=== PATIENT | female | born 1930 | race Caucasian/White ===

== ENCOUNTER 2016-07-02 18:08 | Emergency (ER) | payer MEDICARE, BC ==
[2015-03-01 11:53] VITALS: BMI 19.2
[~2016-07-02 18:08] MED LIST: ADVAIR 250/501 DISK INH; BAYER CHEWABLE81 MG PO; CELEXA20 MG PO; MINERAL OIL25 ML PO; MIRALAX17 GM PO; PLAVIX75 MG PO; PREDNISONE5 MG PO; PREVACID30 MG PO; PROAIR HFA8.5 GM INH; PROTONIX40 MG PO; PROVENTIL/2.5 MG/3 M INH; SINGULAIR10 MG PO; SPIRIVA18 MCG INH
[2016-07-02 19:36] LABS: BASOPHILS 0.4 % (0.0-2.0); EOSINOPHILS 0.8 % (0-7); HEMATOCRIT 33.2 % (36.0-48.0); HEMOGLOBIN 9.8 g/dL (12-16); LYMPHOCYTES 14.4 % (15-50); MCH 27.3 pg (26.0-34.0); MCHC 29.5 g/dL (31.0-37.0); MCV 92.5 fL (80.0-100.0); MEAN PLATELET VOLUME 9.5 fL (7.4-10.4); MONOCYTES 7.4 % (2-11); PLATELET COUNT 231 10x3/uL (130-400); RBC 3.59 10x6/uL (4.00-5.40); RDW 14.2 % (11.5-14.5); WBC 5.1 10x3/uL (4.8-10.8)
[2016-07-02 19:54] LABS: APTT 30.1 SECONDS (22.8-39.4); INR 0.92 (0.85-1.17); PROTIME 12.2 SECONDS (11.6-15.0)
== END 2016-07-02 20:19 | disposition home or self-care (01) ==
LOC: D.ER 18:08
PROVIDERS: Physician Assistant Medical
DX: S81.811A Laceration without foreign body, right lower leg, initial encounter (principal); X58.XXXA Exposure to other specified factors, initial encounter; Y93.E1 Activity, personal bathing and showering; Y92.012 Bathroom of single-family (private) house as the place of occurrence of the external cause; J44.9 Chronic obstructive pulmonary disease, unspecified; J45.909 Unspecified asthma, uncomplicated; H35.30 Unspecified macular degeneration; F17.200 Nicotine dependence, unspecified, uncomplicated

== ENCOUNTER 2016-09-29 18:36 | Emergency (ER) | payer MEDICARE, BC ==
[2015-03-01 11:53] VITALS: BMI 19.2
== END 2016-09-29 20:00 | disposition home or self-care (01) ==
LOC: D.ER 18:36
DX: S41.111A Laceration without foreign body of right upper arm, initial encounter (principal); W26.9XXA Contact with unspecified sharp object(s), initial encounter; Y93.89 Activity, other specified; Y92.89 Other specified places as the place of occurrence of the external cause; J45.909 Unspecified asthma, uncomplicated; J44.9 Chronic obstructive pulmonary disease, unspecified; H35.30 Unspecified macular degeneration

== ENCOUNTER 2018-07-11 16:21 | Inpatient (IN) | payer MEDICARE, BC ==
[~2018-07-11] VITALS: Ht 157.5 cm; Wt 45.8 kg
[2018-07-11] MEDS ORDERED: SYNTHROID25 MCG PO (18:04)
[2018-07-11] MEDS ORDERED: PLAVIX75 MG PO (18:08)
[2018-07-11 18:23] VITALS: BP 184/85; BMI 18.5
[2018-07-11 19:14] LABS: BASOPHILS 0.4 % (0-2); EOSINOPHILS 2.4 % (0-7); HEMATOCRIT 34.3 % (36.0-48.0); HEMOGLOBIN 10.9 g/dL (12-16); LYMPHOCYTES 13.8 % (15-50); MCH 29.4 pg (26.0-34.0); MCHC 31.8 g/dL (31.0-37.0); MCV 92.5 fL (80.0-100.0); MEAN PLATELET VOLUME 8.9 fL (7.4-10.4); MONOCYTES 12.8 % (2-11); NEUTROPHILS 70.6 % (40-80); PLATELET COUNT 304 10x3/uL (130-400); RBC 3.71 10x6/uL (4.00-5.40); RDW 12.8 % (11.5-14.5); WBC 5.4 10x3/uL (4.8-10.8)
--- NOTE | 2018-07-11 19:57 | NUR ---
PATIENT RESTING IN BED WITH EYES OPEN. WATCHING TV. COMPLAINS OF NOT WANTING TO BE IN THE HOSPITAL. NO SIGNS OF DISTRESS. DENIES HAVING ANY PAIN OR NEEDS AT THIS TIME. BED IN LOWEST POSITION. SIDE RAILS UP. CALL LIGHT IN REACH. CONTINUE PLAN OF CARE.
[2018-07-11 20:00] VITALS: BP 155/67
[2018-07-11 20:25] LABS: ANION GAP 9.8 mmol/L (8-16); BILIRUBIN - TOTAL 0.35 mg/dL (0.2-1.3); CALCIUM 8.7 mg/dL (8.5-10.1); CARBON DIOXIDE 38.1 mmol/L (21.0-32.0); POTASSIUM - SERUM 3.9 mmol/L (3.5-5.1); PROTEIN - SERUM 7.6 g/dL (6.4-8.2)
[2018-07-12] VITALS (7 sets, daily range): BP systolic 133–184; BP diastolic 57–81; BMI 18.4
--- NOTE | 2018-07-12 04:00 | NUR ---
PATIENT RESTING IN BED WITH EYES CLOSED. NO SIGNS OF DISTRESS. BED IN LOWEST POSITION. SIDE RAILS UP. CALL LIGHT IN REACH. CONTINUE PLAN OF CARE.
[2018-07-12 07:35] LABS: HEMATOCRIT 33.7 % (36.0-48.0); HEMOGLOBIN 10.7 g/dL (12-16); MCH 29.5 pg (26.0-34.0); MCHC 31.8 g/dL (31.0-37.0); MCV 92.8 fL (80.0-100.0); MEAN PLATELET VOLUME 9.3 fL (7.4-10.4); PLATELET COUNT 337 10x3/uL (130-400); RBC 3.63 10x6/uL (4.00-5.40); RDW 12.8 % (11.5-14.5)
[2018-07-12 07:54] LABS: ALBUMIN 2.7 g/dL (3.4-5.0); ANION GAP 9.4 mmol/L (8-16); BILIRUBIN - TOTAL 0.19 mg/dL (0.2-1.3); CALCIUM 8.5 mg/dL (8.5-10.1); CARBON DIOXIDE 37.7 mmol/L (21.0-32.0); CREATININE - SERUM 0.9 mg/dL (0.6-1.3); POTASSIUM - SERUM 4.1 mmol/L (3.5-5.1); PROTEIN - SERUM 6.9 g/dL (6.4-8.2)
[2018-07-12 08:04] LABS: WBC 2.8 10x3/uL (4.8-10.8)
[2018-07-12 09:03] LABS: BASOPHILS 1 % (0-2); LYMPHOCYTES 15 % (15-50); MONOCYTES 3 % (2-11); NEUTROPHILS 80 % (40-80); PLATELET ESTIMATE NORMAL
--- NOTE | 2018-07-12 09:41 | NUR ---
PT RESTING IN BED, WATCHING TV. PT HAS GLASSES AND DENTURES. PT ALERT AND ORIENTED. UP WITH ASSIST. IV TO LEFT AC, SL. SITE PATENT WITHOUT REDNESS OR SWELLING. NO C/O PAIN. NO S/S OF ACUTE DISTRESS NOTED. PT DENIES ANYTHING FURTHER AT THIS TIME. CALL LIGHT IN REACH. WILL CONTINUE TO MONITOR.
--- NOTE | 2018-07-12 18:25 | NUR ---
PT RESTING IN BED, EYES OPEN. NO C/O PAIN. NO S/S OF ACUTE DISTRESS NOTED. CALL LIGHT IN REACH. PT DENIES ANYTHING FURTHER AT THIS TIME. WILL CONTINUE TO MONITOR.
--- NOTE | 2018-07-12 19:35 | NUR ---
ALERT AND ORIENTED X4. LYING IN BED. TALKATIVE WITH STAFF. SLIGHTLY [place]ANDREAU. RESP IRREG, SLIGHTLY LABORED. BBS CTA BUT DIMINISHED IN BLL. O2 @ 3L/NC. NONPROD COUGH NOTED. SKIN IS THIN, FRAGILE. BRUISE NOTED TO LT OUTER LEG. BLE ARE DISCOLORED BROWN. NO EDEMA NOTED. DENIES PAIN. SALINE LOCK NOTED TO LT AC. NO DISTRESS. CL IN REACH.
[2018-07-13 03:58] VITALS: BP 138/56; BP 166/64
[2018-07-13 04:00] VITALS: BP 138/56
[2018-07-13 05:50] LABS: BASOPHILS 0 % (0-2); EOSINOPHILS 0 % (0-7); HEMATOCRIT 31.9 % (36.0-48.0); HEMOGLOBIN 10.1 g/dL (12-16); LYMPHOCYTES 16.1 % (15-50); MCHC 31.7 g/dL (31.0-37.0); MCV 91.7 fL (80.0-100.0); MEAN PLATELET VOLUME 9.3 fL (7.4-10.4); MONOCYTES 5.7 % (2-11); NEUTROPHILS 78.2 % (40-80); PLATELET COUNT 330 10x3/uL (130-400); RBC 3.48 10x6/uL (4.00-5.40); RDW 12.5 % (11.5-14.5)
[2018-07-13 06:06] LABS: WBC 3.7 10x3/uL (4.8-10.8)
[2018-07-13 06:10] LABS: ALBUMIN 2.6 g/dL (3.4-5.0); ANION GAP 8.1 mmol/L (8-16); BILIRUBIN - TOTAL 0.16 mg/dL (0.2-1.3); CALCIUM 8.2 mg/dL (8.5-10.1); CARBON DIOXIDE 36.9 mmol/L (21.0-32.0); CREATININE - SERUM 1.2 mg/dL (0.6-1.3); MAGNESIUM - SERUM 1.9 mg/dL (1.8-2.4); PHOSPHOROUS 3.6 mg/dL (2.5-4.9); PROTEIN - SERUM 6.4 g/dL (6.4-8.2)
--- NOTE | 2018-07-13 08:00 | NUR ---
ASSESSMENT COMPLETE. SL TO L AC. O2 3L NC IN USE. DENIES ANY NEEDS AT THIS TIME.
[2018-07-13 09:18] LABS: IMMUNOGLOBULIN A 121 mg/dL (64-422); IMMUNOGLOBULIN G 803 mg/dL (700-1600)
[2018-07-13 10:36] VITALS: BP 153/57
[2018-07-13 12:00] VITALS: BP 140/80
--- NOTE | 2018-07-13 12:51 | MORECARE ---
CASE MANAGEMENT DISCHARGE SUMMARY PATIENT: MARIANA DIAZ UNIT: [id number] ADM DATE: 07/11/18 AGE: 87 : 30 SEX: F ROOM/BED: D.1213 AUTHOR: KAITLIN ENNIS PHYSICIAN: REFERRING PHYSICIAN: OTILIA BAPTISTE MD DATE OF SERVICE: 07/13/18 Discharge Plan Patient Name: MARIANA DIAZ Facility: [facility]:[place] : 1930 Planned Disposition: Anticipated Discharge Date: Discharge Date: Expected LOS: Initial Reviewer: [email or web address] Initial Review Date: 07/13/2018 Generated: 07/13/18 1:51 pm Coverage Notice Reviewer: [id number] - Natalie Aggarwal Notice Issued Date-Time: 07/13/2018 12:45 Notice Type: Patient Choice Letter Notice Delivered To: Patient Relationship to Patient: Self Instructor [employer] Name: Delivery Method: HAND - Hand Delivered Yasmine Days: Prior Verbal Notification: Recipient Understood Notice: Yes Recipient Signature: Yes Med Rec Note Co-signed by Attending: Coverage Notice Comment: BERTA MINA Patient Name: MARIANA DIAZ Page [phone] at 1251 All edits/amendments must be made on the electronic document DICTATION DATE: 07/13/18 1251 GANG DRILL OPERATOR: VERITO 07/13/18 1251 RPT#: [id number] DC DATE: STATUS: ADM IN [facility] [address] [place] [address] END OF REPORT
--- NOTE | 2018-07-13 12:58 | MORECARE ---
CASE MANAGEMENT DISCHARGE SUMMARY PATIENT: MARIANA DIAZ UNIT: [id number] ADM DATE: 07/11/18 AGE: 87 : 30 SEX: F ROOM/BED: D.1213 AUTHOR: KAITLIN ENNIS PHYSICIAN: REFERRING PHYSICIAN: OTILIA BAPTISTE MD DATE OF SERVICE: 07/13/18 Discharge Plan Patient Name: MARIANA DIAZ Facility: [facility]:[place] : 1930 Planned Disposition: Anticipated Discharge Date: Discharge Date: Expected LOS: Initial Reviewer: [email or web address] Initial Review Date: 07/13/2018 Generated: 07/13/18 1:57 pm DCPIA - Discharge Planning Initial Assessment Updated by [email or web address]: Natalie Aggarwal on 07/13/18 12:55 pm * Is the patient Alert and Oriented? Yes * PCP OLIVA * Pharmacy [facility] * Preadmission Environment Home Alone * ADLs Independent * Equipment Cane Nebulizer Oxygen Walker Wheelchair * List name and contact numbers for known caregivers / representatives who currently or will assist patient after discharge: DENISE REEVES, [phone] * Community resources currently utilized None * Please name any agencies selected above. [facility] PATIENT * Additional services required to return to the preadmission environment? Yes * Can the patient safely return to the preadmission environment? Yes * Has this patient been hospitalized within the prior 30 days at any hospital? No Coverage Notice Reviewer: [id number] - Natalie gAgarwal Notice Issued Date-Time: 07/13/2018 12:45 Notice Type: Patient Choice Letter Notice Delivered To: Patient Relationship to Patient: Self Manager Bridge Name: Delivery Method: HAND - Hand Delivered Yasmine Days: Prior Verbal Notification: Recipient Understood Notice: Yes Recipient Signature: Yes Med Rec Note Co-signed by Attending: Coverage Notice Comment: BERTA ROBLES Last DP export: 07/13/18 11:51 a Patient Name: MARIANA DIAZ Page [phone] at 1258 All edits/amendments must be made on the electronic document DICTATION DATE: 07/13/18 1257 MACHINE TRIMMER: VERITO 07/13/18 1257 RPT#: [id number] DC DATE: STATUS: ADM IN [facility] [address] [place] [address] END OF REPORT
--- NOTE | 2018-07-13 13:06 | MORECARE ---
CASE MANAGEMENT DISCHARGE SUMMARY PATIENT: MARIANA DIAZ UNIT: [id number] ADM DATE: 07/11/18 AGE: 87 : 30 SEX: F ROOM/BED: D.1213 AUTHOR: LOLI,DOC PHYSICIAN: REFERRING PHYSICIAN: OTILIA BAPTISTE MD DATE OF SERVICE: 07/13/18 Discharge Plan Patient Name: MARIANA DIAZ Facility: [facility]:[place] : 1930 Planned Disposition: Anticipated Discharge Date: Discharge Date: Expected LOS: Initial Reviewer: [email or web address] Initial Review Date: 07/13/2018 Generated: 07/13/18 2:06 pm Comments DCP- Discharge Planning Updated by [email or web address]: Natalie Aggarwal on 07/13/18 12:[address] Patient Name: MARIANA DIAZ Admission Status: Urgent Accout number: [id number] Admission Date: 07-11-2018 : 1930 Admission Diagnosis: Attending: OTILIA BAPTISTE Current LOS: 2 Anticipated DC Date: Planned Disposition: Primary Insurance: MEDICARE A & B Discharge Planning Comments: CM MET WITH PATIENT AND HER DAUGHTER LALA ABOUT DC PLANNING/NEEDS. STATES PLANS TO DC TO HOME WITH HOME HEALTH. PC FORM SIGNED FOR [facility]. PATIENT STATES NEEDS SOME HELP AT HOME AND PT AND A NURSE TO CHECK ON HER. DR. BAPTISTE AT BEDSIDE AND ASSURED PATIENT WE WOULD SET HH UP FOR HER AT TIME OF DISCHARGE. PATIENT DAUGHTER LALA WOULD LIKE TO BE PRESENT WHEN DECISIONS ARE MADE. CM TO FOLLOW AND ASSIST NEEDED WITH DC PLANNING/NEEDS. Senior Manufacturing Technician: Natalie Aggarwal DCPIA - Discharge Planning Initial Assessment Updated by [email or web address]: Natlaie Aggarwal on 07/13/18 12:55 pm * Is the patient Alert and Oriented? Yes * PCP OLIVA * Pharmacy [facility] * Preadmission Environment Home Alone * ADLs Independent * Equipment Cane Nebulizer Oxygen Walker Wheelchair * List name and contact numbers for known caregivers / representatives who currently or will assist patient after discharge: DENISE REEVES, [phone] * Community resources currently utilized None * Please name any agencies selected above. [facility] PATIENT * Additional services required to return to the preadmission environment? Yes * Can the patient safely return to the preadmission environment? Yes * Has this patient been hospitalized within the prior 30 days at any hospital? No Coverage Notice Reviewer: [id number] Marj Aggarwal Notice Issued Date-Time: 07/13/2018 12:45 Notice Type: Patient Choice Letter Notice Delivered To: Patient Relationship to Patient: Self Steward/Stewardess Chief Cargo Vessel Name: Delivery Method: HAND - Hand Delivered Yasmine Days: Prior Verbal Notification: Recipient Understood Notice: Yes Recipient Signature: Yes Med Rec Note Co-signed by Attending: Coverage Notice Comment: BERTA ROBLES Last DP export: 07/13/18 11:58 a Patient Name: MARIANA DIAZ Page [phone] at 1306 All edits/amendments must be made on the electronic document DICTATION DATE: 07/13/18 1305 DISH MAKER: VERITO 07/13/18 1305 RPT#: [id number] DC DATE: STATUS: ADM IN [facility] [address] [place] [address] END OF REPORT
--- NOTE | 2018-07-13 14:20 | NUR ---
PATIENT BATHED AND LINENS CHANGED. SOB WITH EXERTION. CALL LIGHT WITHIN REACH. DENIES ANY NEEDS AT THIS TIME.
--- NOTE | 2018-07-13 15:33 | NUR ---
RESTING QUIETLY IN BED. DENIES ANY NEEDS AT THIS TIME. FAMILY AT BEDSIDE.
--- NOTE | 2018-07-13 18:00 | NUR ---
DENIES ANY NEEDS AT THIS TIME.
--- NOTE | 2018-07-13 19:20 | NUR ---
SITTING UP ON SIDE OF BED. ALERT AND ORIENTED X4. TALKATIVE WITH STAFF. RESP IRREG, SLIGHTLY LABORED. BBS CTA BUT DIMINISHED IN BLL. PROD COUGH WITH YELLOW SPUTUM. BRUISES NOTED TO BUE. BLE ARE DISCOLORED BROWN. NO EDEMA NOTED. AMBULATORY. GEN WEAKNESS NOTED. DENIES PAIN. O2 @ 2L/NC. SALINE LOCK NOTED TO LT AC. BRUISE NOTED TO LT OUTER KNEE. CL IN REACH.
[2018-07-13 21:18] VITALS: BP 152/61
[2018-07-14 00:50] VITALS: BP 117/76
[2018-07-14 05:35] VITALS: BP 143/63
[2018-07-14 07:17] LABS: BASOPHILS 0.2 % (0-2); EOSINOPHILS 0 % (0-7); HEMATOCRIT 32.5 % (36.0-48.0); HEMOGLOBIN 10.3 g/dL (12-16); IMMATURE GRANULOCYTES 0.2 % (0-5); LYMPHOCYTES 12.6 % (15-50); MCH 29.1 pg (26.0-34.0); MCHC 31.7 g/dL (31.0-37.0); MCV 91.8 fL (80.0-100.0); MEAN PLATELET VOLUME 9.1 fL (7.4-10.4); MONOCYTES 8.1 % (2-11); NEUTROPHILS 78.9 % (40-80); PLATELET COUNT 347 10x3/uL (130-400); RBC 3.54 10x6/uL (4.00-5.40); RDW 12.6 % (11.5-14.5)
[2018-07-14 07:18] LABS: WBC 5.5 10x3/uL (4.8-10.8)
[2018-07-14 07:35] LABS: ALBUMIN 2.6 g/dL (3.4-5.0); ANION GAP 5.4 mmol/L (8-16); BILIRUBIN - TOTAL 0.15 mg/dL (0.2-1.3); CALCIUM 8.2 mg/dL (8.5-10.1); CARBON DIOXIDE 39.3 mmol/L (21.0-32.0); CREATININE - SERUM 1.2 mg/dL (0.6-1.3); POTASSIUM - SERUM 3.7 mmol/L (3.5-5.1); PROTEIN - SERUM 6.5 g/dL (6.4-8.2)
--- NOTE | 2018-07-14 08:00 | NUR ---
ASSESSMENT COMPLETE. SL TO L AC. O2 2L NC IN USE. NONPRODUCTIVE COUGH. DENIES ANY NEEDS AT THIS TIME.
--- NOTE | 2018-07-14 10:41 | NUR ---
AMBULATED IN HALLWAY WITH PHYSICAL THERAPY.
[2018-07-14 11:22] LABS: ANA REFLEX - DIRECT Negative (Negative)
[2018-07-14 11:39] VITALS: BP 135/59
--- NOTE | 2018-07-14 12:22 | NUR ---
SITTING UP IN CHAIR. CALL LIGHT WITHIN REACH. DENIES ANY NEEDS AT THIS TIME.
[2018-07-14] MEDS ORDERED: LEVAQUIN750 MG PO (13:26)
[2018-07-14] MEDS ORDERED: MEDROL DOSE PACK4 MG PO (13:27)
--- NOTE | 2018-07-14 13:27 | NUR ---
Nutrition Follow Up: Pt stated that her appetite was fair. She said that she has not drank any Ensure but will try to. Pt said that her mouth was sore r/t thrush. Food preferences noted. RD encouraged pt to increase po intake as able and to try to consume at least 1 Ensure/day. Diet: Regular; Ensure TID PO Intake: 58% meal avg No BM since admit Labs reviewed Meds noted including Megace, Solu Medrol Rec continue current diet, supplement regimen. Will honor food preferences. RD following.
--- NOTE | 2018-07-14 14:59 | NUR ---
Rehab Prescreening Consult recieved and the patient was visited. She meets criteria for the ARU and is agreeable to participate in the required therapy. She will be accepted today if the physician agrees. Discussed with the patient's nurse Sonya. Keyla Merida RN Clinical Liaison, Rehab
--- NOTE | 2018-07-14 16:20 | NUR ---
REPORT CALLED TO REHAB. PATIENT DC'D TO REHAB ROOM 1112B VIA WC WITH BELONGINGS.
[2018-07-14 23:54] VITALS: Ht 157.5 cm; Wt 45.8 kg
[2018-07-17 17:11] LABS: IMMUNOGLOBULIN E 15 IU/mL (6-495)
== END 2018-07-14 16:20 | DRG 189 ==
LOC: D.SDCHOLD 16:21 → D.M3 16:21
PROVIDERS: Internal Medicine Pulmonary Disease; ADMIT Family Medicine; ATTEND Family Medicine
DX: J96.22 Acute and chronic respiratory failure with hypercapnia (principal); E46 Unspecified protein-calorie malnutrition; J47.0 Bronchiectasis with acute lower respiratory infection; Z68.1 Body mass index [BMI] 19.9 or less, adult; J96.21 Acute and chronic respiratory failure with hypoxia; J43.9 Emphysema, unspecified; J01.90 Acute sinusitis, unspecified; I10 Essential (primary) hypertension; I25.10 Atherosclerotic heart disease of native coronary artery without angina pectoris; I73.9 Peripheral vascular disease, unspecified; K21.9 Gastro-esophageal reflux disease without esophagitis; Z87.891 Personal history of nicotine dependence; D64.9 Anemia, unspecified; E03.9 Hypothyroidism, unspecified; J20.9 Acute bronchitis, unspecified

== ENCOUNTER 2018-07-14 16:26 | Inpatient (IN) | payer MEDICARE, BC ==
[~2018-07-14] VITALS: Ht 157.5 cm; Wt 45.8 kg
[~2018-07-14 16:26] MED LIST changes: +LEVAQUIN750 MG PO; +MEDROL DOSE PACK4 MG PO; +SYNTHROID25 MCG PO
[2018-07-14 17:54] VITALS: BMI 18.5
[2018-07-14 19:30] VITALS: BP 183/72
[2018-07-15 08:00] VITALS: BP 120/41
[2018-07-15 18:46] VITALS: Ht 157.5 cm; Wt 45.8 kg
[2018-07-15 19:30] VITALS: BP 137/54
[2018-07-16 08:12] VITALS: BP 148/44
[2018-07-16 19:28] VITALS: BP 132/47
[2018-07-17 08:16] VITALS: BP 142/55
[2018-07-17 19:50] VITALS: BP 179/72
[2018-07-18 06:28] LABS: BASOPHILS 0 % (0-2); EOSINOPHILS 0.9 % (0-7); HEMATOCRIT 33.8 % (36.0-48.0); HEMOGLOBIN 10.5 g/dL (12-16); IMMATURE GRANULOCYTES 0.3 % (0-5); LYMPHOCYTES 20.5 % (15-50); MCH 28.9 pg (26.0-34.0); MCHC 31.1 g/dL (31.0-37.0); MCV 93.1 fL (80.0-100.0); MEAN PLATELET VOLUME 9.2 fL (7.4-10.4); MONOCYTES 12.7 % (2-11); NEUTROPHILS 65.6 % (40-80); PLATELET COUNT 352 10x3/uL (130-400); RBC 3.63 10x6/uL (4.00-5.40); RDW 13.2 % (11.5-14.5); WBC 6.6 10x3/uL (4.8-10.8)
[2018-07-18 06:59] LABS: ANION GAP 5.7 mmol/L (8-16); CALCIUM 8.5 mg/dL (8.5-10.1); CARBON DIOXIDE 38.1 mmol/L (21.0-32.0); CREATININE - SERUM 1.1 mg/dL (0.6-1.3); POTASSIUM - SERUM 3.8 mmol/L (3.5-5.1)
[2018-07-18 08:16] VITALS: BP 144/37
[2018-07-18 19:00] VITALS: BP 137/48
[2018-07-19 08:16] VITALS: BP 172/49
[2018-07-19 19:00] VITALS: BP 139/59
[2018-07-20 07:58] VITALS: BP 138/46
[2018-07-20 19:00] VITALS: BP 117/51
[2018-07-21 08:00] VITALS: BP 147/42
[2018-07-21 19:00] VITALS: BP 139/51
[2018-07-22 07:30] VITALS: BP 162/67
[2018-07-23 08:00] VITALS: BP 156/60
[2018-07-23 20:08] VITALS: BP 158/65
[2018-07-24 07:36] LABS: BASOPHILS 0.3 % (0-2); HEMATOCRIT 31.9 % (36.0-48.0); HEMOGLOBIN 9.9 g/dL (12-16); IMMATURE GRANULOCYTES 0.1 % (0-5); LYMPHOCYTES 14.6 % (15-50); MCH 28.6 pg (26.0-34.0); MCV 92.2 fL (80.0-100.0); MEAN PLATELET VOLUME 8.8 fL (7.4-10.4); MONOCYTES 14.6 % (2-11); NEUTROPHILS 67.4 % (40-80); RBC 3.46 10x6/uL (4.00-5.40); RDW 13.8 % (11.5-14.5)
[2018-07-24 07:44] LABS: CALCIUM 8.2 mg/dL (8.5-10.1); CARBON DIOXIDE 34.8 mmol/L (21.0-32.0); POTASSIUM - SERUM 3.8 mmol/L (3.5-5.1)
[2018-07-24 07:55] LABS: PLATELET COUNT 279 10x3/uL (130-400)
[2018-07-24 08:17] VITALS: BP 150/57
--- NOTE | 2018-07-24 10:06 | RHP ---
PATIENT: MARIANA DIAZ MEDICAL RECORD: [id number] ACCOUNT: [id number] LOCATION:[id number] : 30 ADMISSION DATE: 07/14/18 REHABILITATION HISTORY AND PHYSICAL EXAMINATION POST ADMISSION PHYSICIAN EXAMINATION DATE OF ADMISSION: 07/14/2018 ADMITTING DIAGNOSES: Chronic obstructive pulmonary disease myopathy. HISTORY OF PRESENT ILLNESS: The patient is an elderly female patient of Dr. Hagan who presents secondary to chronic obstructive pulmonary disease myopathy. She was admitted to hospital from clinic on 07/11/2018 with a 1-week history of not feeling well, increasing shortness of breath, leg edema, productive cough, dyspnea with minimal activity and unable to do activities of daily living. She was using nebulizer, which helped and steroids chronically over many years, but had just decompensated over the previous couple of weeks. The patient had a CT of her chest, which showed qnnsnvct-px-qthdrx central lobar emphysematous changes and peribronchial thickening diffusely. Bronchiectasis was also present in lower lobes bilaterally. She was quite weak, fatigued, had prolonged capillary refill an irregular heart rhythm and decreased breath sounds bilaterally with wheezes. Pulmonary saw her during her stay and diagnosed her with severe COPD, O2 and steroid dependence. Recommended treatment was neb treatments, albuterol, ipratropium bromide, Brovana, budesonide, IV steroids, Daliresp, and titrating O2 sats greater than 90%. She was placed on IV antibiotics. She has also been on DVT and GI prophylaxis. The patient improved with corticosteroids and IV Lasix, this was stopped on 07/12/2018. The steroids had been tapered over this time. She has had prolonged immobility, progressive generalized weakness, especially on her lower extremities affecting her tolerance to PT. She has been very fatigued, limited flexion and extension of her lower extremities. Proximal muscle strength has been decreased. She needed mod-to-max assist for ADLs, mod-to-max assist for jap-aa-vkdum and fpv-vu-pmgdg. She is highly motivated and has good family support to regain her strength. She wears O2 at 2 liters continuously. BARRIERS TO DISCHARGE: She lives alone. She is currently on continuous O2 at 4 liters. She needs to be titrated back down to her previous level of 2 liters. She is on IV steroids, being titrated back to p.o. dose. She ambulated 100 feet with 4 liters using a rolling walker, gait belt and PT assistance due to dyspnea on exertion. She is fatigued, has generalized weakness, which increases her risk for falls. She definitely benefits from inpatient rehabilitation. COMORBIDITIES: Include COPD, emphysema, pulmonary edema, oigea-rl-vpayjmu hypoxic respiratory failure, hypertension, coronary artery disease, gastroesophageal reflux disease, xneqc-qr-fxstxud sinusitis, anemia, hypothyroidism and debility. PAST MEDICAL HISTORY: Significant for seizures, tremors, eye problems, hypertension, peripheral vascular disease, COPD, asthma, pneumonia, home O2 dependence, hypothyroidism, tobacco use, coronary artery disease and peripheral arterial disease. PAST SURGICAL HISTORY: Includes cataracts, fem-pop stent placed in the left side, angioplasty with stents in the past. HISTORY AND PHYSICAL [id number] MARIANA DIAZ ALLERGIES: SULFA, AMOXIL, BUMEX, CODEINE AND MACROBID. CURRENT MEDICATIONS: Include Megace 400 mg daily. She is on Solu-Medrol injection 40 mg b.i.d., clonidine 0.1 mg every 6 hours p.r.n., is on a low-resistant sliding scale. She is on a glucose replacement protocol as needed, aspirin 81 mg daily, Tessalon Perles 100 mg t.i.d., Celexa 20 mg daily, Plavix 75 mg daily, Lovenox 40 mg daily, Flonase nasal spray 2 sprays daily. She is on Brovana 15 mcg b.i.d., budesonide 0.5 mg b.i.d., Synthroid 25 mcg daily, Protonix 40 mg daily, Levaquin 750 mg every 24 hours, she is on Singulair 10 mg at bedtime and DuoNeb updrafts p.r.n. HABITS: No alcohol or tobacco use. FAMILY HISTORY: Noncontributory. SOCIAL HISTORY: The patient hopes to return back home and get back to her prior level of functioning. REVIEW OF SYSTEMS: GENERAL: Denies weakness or fatigue. HEENT: Denies cold, cough, or congestion. CARDIOVASCULAR: Denies chest pain. PHYSICAL EXAMINATION: VITAL SIGNS: Stable. She is afebrile. GENERAL: Elderly female in no acute distress upon exam. HEENT: Normocephalic and atraumatic. Mucosa moist. NECK: Supple. No lymphadenopathy. LUNGS: Clear in upper shi with decreased breath sounds at the bases. HEART: Regular rate and rhythm. ABDOMEN: Benign. EXTREMITIES: No clubbing, cyanosis or edema. NEUROLOGIC: Seems intact, although she does have proximal muscle weakness. LABORATORY DATA: Admit sodium today is 135, potassium 3.7, BUN and creatinine of 21 and 1.2, and blood sugar is noted to be 111. Her liver functions have all been normal. Her white count is 5.5, H&H of 10 and 32 and platelet count was noted to be 247. 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 The patient has potential to make improvement. We willl institute the following multidisciplinary therapies including, but not limited physical, occupational, respiratory, speech, nutritional services, prosthetics and orthotics. Given her complex medical condition and risks for more complications, rehabilitation services cannot be provided at a low level of care such as a skilled nurse facility. PLAN: 1. Admit to [facility] for intensive inpatient therapy to include the following disciplines; A. Physical therapy to improve gait, all transfer skills and bed mobility to a modified independent level. B. Occupational therapy to a modified independent level. C. Case management to assist with discharge planning and placement options. HISTORY AND PHYSICAL [id number] MARIANA DIAZ Nutrition to assist with nutritional needs. E. Rehabilitation nursing to assist in monitoring the patient's underlying medical conditions and to assist with any type of bowel or bladder management. 2. The patient's current medication and medical care will be continued. 3. The patient will be placed on standard fall precautions. 4. The patient's estimated length of stay is approximately 7-10 days. 5. Discuss the patient with care team staff meeting this week. TRANSINT:[id number] Voice Confirmation ID: [id number] DOCUMENT ID: [id number] LADAN notes whether there has been none or any medical/functional change since admission: - No change since prescreen. LADAN attests patient continues to be appropriate for IRF: - Continues to be appropriate. FLY LAM MD at 1006 CC: [id number] DICTATION DATE: 07/14/18 161 PHP ARCHITECT: 07/14/18 6043 ADM IN [place] [address] [place] [address]
--- NOTE | 2018-07-24 14:39 | HP ---
PATIENT: MARIANA DIAZ MEDICAL RECORD: [id number] ACCOUNT: [id number] LOCATION:[facility] D.1112 : 30 ADMISSION DATE: 07/14/18 PCP: OTILIA BAPTISTE HISTORY AND PHYSICAL EXAMINATION CHIEF COMPLAINT: An 87-year-old white female who is being admitted to the rehab for COPD exacerbation and generalized myopathy. HISTORY OF PRESENT ILLNESS: The patient is an 87-year-old female with a history of COPD, myopathy that was admitted to the rehab unit after the hospital stay for generalized feeling unwell and shortness of breath. The patient was evaluated in the hospital. Pulmonary consultation was obtained and she had been on steroids, nebulizer treatment, and other inhalers chronically for some time. The patient made some improvement, but a CT showed parenchyma with severe central lobar emphysematous changes and peribronchial thickening. Bronchiectasis was present in lower lobes and the patient was generalized weak and fatigued. She had prolonged capillary refill and irregular heart rhythm. It was felt that she will need to be evaluated and further strengthened. The patient was on IV antibiotics upstairs for Gram-negative rods. Labs and x-rays were being followed while she was there and was on a steroid taper. Pulmonary has been able to wean her off of the higher dose of steroids and that she is down to a flow rate now 2 liters nasal cannula. PAST MEDICAL HISTORY: Significant for seizures, tremors. She had some eye surgery and bilateral lens implants in the past. She also has a history of hypertension, peripheral vascular disease, COPD, childhood asthma, pneumonia. She has oxygen dependent COPD. She also has GERD with no esophagitis. She does have a history of fem-pop surgery with some wound breakdown and was followed by ortho. The patient is postmenopausal. She does have a history of hypothyroidism, coronary artery disease, peripheral arterial disease. She does have a history of nicotine use. PAST SURGICAL HISTORY: Includes cataract implants, fem-pop bypass, and PTCA in the past. ALLERGIES: THE PATIENT IS ALLERGIC TO SULFA, AMOXICILLIN, BUMEX, CODEINE, AND MACROBID. REVIEW OF SYSTEMS: There is no significant change other than weakness, shortness of breath and cough. PHYSICAL EXAMINATION: VITAL SIGNS: Stable, afebrile. GENERAL: Elderly white female in no acute distress. HEENT: Normocephalic, atraumatic. Pupils equal, round and reactive to light. Extraocular movements are intact. Oral cavity and oropharynx otherwise clear. NECK: No cervical or pharyngeal adenopathy. No nuchal rigidity. CHEST: Lungs have diminished breath sounds with some egophony throughout the lung shi. She does have wheezing present in the bases. HEART: Regular rate and rhythm with a I/ systolic ejection murmur. ABDOMEN: Soft, nontender, positive bowel sounds. No hepatosplenomegaly or masses. EXTREMITIES: She does have some clubbing that is present. NEUROLOGIC: Able to move all 4 extremities. HISTORY AND PHYSICAL [id number] MARIANA DIAZ ASSESSMENT: This is an 87-year-old white female admitted to the rehab for COPD myopathy. The patient has potential to make good improvement. Multidisciplinary therapies will include physical and occupational therapy as well as medication and education. The patient does have risk of falls and with her seizure disorder and higher complication rate on this, the patient will be admitted to the rehab unit for intensive inpatient therapy. She will have physical therapy, occupational therapy, case management, nutritional and rehab nursing to assist. Her medications use will be followed. She will be on standard fall precautions. Medication will be followed and we will check and the patient in the rehab after her initial therapy. TRANSINT:[id number] Voice Confirmation ID: [id number] DOCUMENT ID: [id number] MARICHUY DEL CID MD at 1439 CC: [id number] DICTATION DATE: 07/17/18815 LOCKS TENDER: 07/17/18 0839 ADM IN [place] [id number] [place] [address]
[2018-07-24 19:00] VITALS: BP 139/61
[2018-07-25 08:00] VITALS: BP 150/57
[2018-07-25 19:00] VITALS: BP 151/71
[2018-07-26 08:00] VITALS: BP 132/87
[2018-07-26 08:17] LABS: ANION GAP 8.4 mmol/L (8-16); CALCIUM 8.1 mg/dL (8.5-10.1); CARBON DIOXIDE 35.4 mmol/L (21.0-32.0); CREATININE - SERUM 0.9 mg/dL (0.6-1.3); POTASSIUM - SERUM 3.8 mmol/L (3.5-5.1)
[2018-07-26 08:32] LABS: BASOPHILS 0.4 % (0-2); EOSINOPHILS 7.6 % (0-7); HEMATOCRIT 32.8 % (36.0-48.0); HEMOGLOBIN 10.1 g/dL (12-16); IMMATURE GRANULOCYTES 0.1 % (0-5); LYMPHOCYTES 10.3 % (15-50); MCH 28.6 pg (26.0-34.0); MCHC 30.8 g/dL (31.0-37.0); MCV 92.9 fL (80.0-100.0); MEAN PLATELET VOLUME 9.3 fL (7.4-10.4); MONOCYTES 11.3 % (2-11); NEUTROPHILS 70.3 % (40-80); PLATELET COUNT 292 10x3/uL (130-400); RBC 3.53 10x6/uL (4.00-5.40); RDW 13.8 % (11.5-14.5); WBC 7.1 10x3/uL (4.8-10.8)
[2018-07-26 19:00] VITALS: BP 152/45
[2018-07-27 08:00] VITALS: BP 133/60
[2018-07-27] MEDS ORDERED: DALIRESP500 MCG PO (08:21)
== END 2018-07-27 14:11 | disposition home health service (06) | DRG 91 ==
LOC: D.REHAB 16:26
PROVIDERS: Family Medicine; ADMIT Emergency Medicine; ATTEND Emergency Medicine
DX: G72.89 Other specified myopathies (principal); J96.21 Acute and chronic respiratory failure with hypoxia; J96.22 Acute and chronic respiratory failure with hypercapnia; J81.1 Chronic pulmonary edema; J44.0 Chronic obstructive pulmonary disease with (acute) lower respiratory infection; J44.1 Chronic obstructive pulmonary disease with (acute) exacerbation; E46 Unspecified protein-calorie malnutrition; I25.10 Atherosclerotic heart disease of native coronary artery without angina pectoris; K21.9 Gastro-esophageal reflux disease without esophagitis; E03.9 Hypothyroidism, unspecified; R53.81 Other malaise; D64.9 Anemia, unspecified; J20.9 Acute bronchitis, unspecified